=== PATIENT | female | born 2000 | race African-American/Black ===

== ENCOUNTER 2023-11-13 14:57 | Emergency (ER) | payer SELFPAY ==
[2023-11-13] MEDS: diphenhydrAMINE 25 MG Cap PO ONE (15:14)
[2023-11-13] MEDS: EPINEPHrine 1 MG/1 ML Amp IM ONE (15:14)
[2023-11-13] MEDS: Famotidine 20 MG Tab PO ONE (15:14)
== END 2023-11-13 16:40 ==
LOC: VM.ED 14:57
DX: T78.40XA Allergy, unspecified, initial encounter (principal)
CPT/HCPCS: 96372; 99283; 99284; A9270; J0171